=== PATIENT | female | born 1985 | race Caucasian/White ===

== ENCOUNTER 2024-05-18 15:48 | Emergency (ER) | payer MEDICAID, SELFPAY ==
[2024-05-18 15:49] VITALS: BP 123/88; PULSE 70; RESP 12; TEMP 37.4; O2SAT 95
--- NOTE | 2024-05-18 16:15 | DI.RAD_ITS ---
Exam(s) XR NASAL BONES EXAM: XR NASAL BONES CLINICAL HISTORY: fracture. TECHNIQUE: 2D digital imaging was performed. COMPARISON: No exams were available for comparison FINDINGS: 3 views There is no fracture evident on the lateral views. On the Crowell-type view there is summary laterall y of the left nasal bone noted, possibly significant. IMPRESSION: No evidence of depressed nasal fracture but says some regularity left nasal bone noted on the frontal -crowell type view. May be variant of normal. DATA REPOSITORY: RADIATION DOSE DELIVERED:
[2024-05-18] MEDS: Ondansetron O.D.T. 4 MG TABEF PO (17:00)
--- NOTE | 2024-05-18 17:28 | W.ED.GENAD ---
Discharge Plan Disposition Patient Disposition: Home Discharge Details Clinical Impression: Closed fracture nasal bone, Concussion Primary Care Provider: None,None ED Provider: Bernice Dudley Home Meds and New Rx's Prescriptions: No Action No Known Home Meds Discharge Instructions Instructions: Nose Fracture (DC), Post-Concussion Syndrome ED Additional Instructions: I listed a referral to [facility] plastics for you and listed Dr. Dsouza, ENT below Take Zofran as needed for nausea and vomiting, recommendation for rest for the next 48 hours stay away from ibuprofen and blowing your nose Recommendation to limit cardiovascular activity for the next several days to prevent nosebleed or worsening concussive signs and symptoms You have a nasal clamp, if you do have some bleeding, apply the nasal clamp for 20 minutes and spray some Afrin in your nose to see if it will resolve If you did have bleeding, please return for reassessment Please return should you have worsening headache, vomiting, increase in nasal bleeding, or should any new concerns arise Discharge Data Discharge Date/Time-TO BE ENTERED AT DEPARTURE: 05/18/24 18:23 HPI General Date/Time Provider Initiated Documentation: 05/18/24 15:54. HPI Narrative: This 39-year-old female presents with report of injury to nose after she accidentally fell on the shelf fold. She states it was a heavy metal shelf denies any loss of consciousness. Had some epistaxis from her right nare per patient. States tetanus is up-to-date denies chance of . States she has some nausea with a mild headache. Related Data Home Medications ?Medication ?Instructions ?Recorded ?Confirmed Unknown [No Known Home Meds] 05/18/24 05/18/24 Allergies Allergy/AdvReac Type Severity Reaction Status Date / Time amoxicillin AdvReac Intermediate Hives Verified 05/18/24 15:54 Penicillins AdvReac Intermediate Hives Verified 05/18/24 15:54 General Stated Complaint: FacialProb MARION: 3 Exam Narrative Exam Narrative: Tach, pupils equal round reactive to light and accommodation, no midline cervical spine tenderness, no visible chest trauma, hematoma and swelling noted to bridge of nasal bone, small abrasion without evidence of open fracture, epistaxis to right nare without evidence of septal hematoma, no active bleeding, GCS 15, alert and oriented x 4, ambulatory steady gait Course Vital Signs Vital signs: Vital Signs Temperature 37.4 C 05/18/24 15:49 Pulse 70 05/18/24 15:49 Respiratory Rate 12 05/18/24 15:49 Blood Pressure 123/88 05/18/24 15:49 Pulse Oximetry 95 05/18/24 15:49 Temperature 37.4 C 05/18/24 15:49 Temperature Source Skin 05/18/24 15:49 Pulse 70 05/18/24 15:49 Respiratory Rate 12 05/18/24 15:49 Respiratory Effort Normal 05/18/24 16:00 Blood Pressure 123/88 05/18/24 15:49 Blood Pressure Position Sitting 05/18/24 15:49 Pulse Oximetry 95 05/18/24 15:49 Oxygen Delivery Method Room Air 05/18/24 15:49 Oxygen Flow Rate 0 05/18/24 15:49 Pain Level 3 05/18/24 15:49 Medical Decision Making 39-year-old female presenting with nasal trauma today just prior to arrival. Also having some nausea with a headache, suspect mild concussion, no indication for CT imaging at this time, nonfocal neurological exam without significant concerning mechanism. I did order a nasal bone x-ray at the request of the patient and there is a small avulsion fracture but no additional findings. They requested plastic surgery referral, I have placed a referral to plastic surgery at [facility]. She is given a nasal clamp as needed and will engage in supportive care at home. Return precautions reviewed and patient expressed understanding. Tetanus updated reportedly. No vomiting throughout this stay and remains alert and oriented Quality:SDOH Health Related Social Needs: No Data to Display PFSH All Active Problems (Updated 05/18/24 @ 17:33 by FAIZA Mehta) Concussion (Acute) Closed fracture nasal bone (Acute) Social History Smoking/Tobacco Use Status: Current-Occasional Smoking risk assessment performed?: Yes Alcohol Intake: current Alcohol Intake frequency: a few times a month Drug use: Occasionally Substance use type: marijuana Housing: house Do you feel safe at home: Yes Do you feel safe in your relationship?: Yes PAWSS Have you Been Recently Intoxicated or Drunk Within the Last 30 days?: No Have you Ever Experienced Previous Episodes of Alcohol Withdrawal?: No Have you ever Experienced Withdrawal Seizures?: No Have you ever Experienced Delirium Tremens(DT)s?: No Have you ever undergone Alcohol Rehabilitation Treatment (i.e, inpt ot outpatient treatment programs)?: No Have you ever Experienced Blackouts?: No Have you ever Combined Alcohol with other Downers within the last 90 days?: No Positive Blood Alcohol level on Presentation? [PCS.BAL]: No Result: 0
--- NOTE | 2024-05-18 17:37 | NUR.NOTE ---
Addendum entered by Neva Mcdonough 05/22/24 09:17: Access chart to see if there was documentation of a referral done. Original Note: Referral given to Care Management to [facility] for nasal bone fracture in 1 to 2 weeks. Referral faxed to [facility]: Samantha Marquez on for telephone call; to establish care, just moved back to area; routine follow up. Nursing Note:
[2024-05-18 18:14] VITALS: PULSE 78; RESP 18; O2SAT 97
[2024-05-18] MEDS: Ondansetron O.D.T. 4 MG TABEF, 3 TABS/BTL PO (19:07)
== END 2024-05-18 18:23 | disposition home or self-care (01) ==
PROVIDERS: Emergency Provider Physician Assistant
DX: S02.2XXA Fracture of nasal bones, initial encounter for closed fracture (principal); S06.0XAA Concussion with loss of consciousness status unknown, initial encounter; W22.8XXA Striking against or struck by other objects, initial encounter
CPT/HCPCS: 99283; 70160

== ENCOUNTER 2024-08-18 02:09 | Outpatient (CLI) | payer MEDICAID, SELFPAY ==
--- NOTE | 2024-08-18 | DI.CT_ITS ---
Exam(s) CT FACIAL WO EXAM: CT FACIAL WO CLINICAL HISTORY: FACIAL INJURY S09.93XD NASAL BONE FX S/P FACIAL TRAUMA, ASSESS INJURY R/O. TECHNIQUE: Imaging Protocol: Axial computed tomography images with coronal and sagittal reformatted images were created and reviewed CONTRAST MATERIAL: Noncontrast- COMPARISON: CR XR NASAL BONES from 05/18/2024 FINDINGS: Facial Bones: No fracture is noted in the facial bones. The nasal septum is significantly deviated toward the left. Sinuses and Mastoids: Minimal mucous retention at the roof of the left maxillary sinus. Distal smal l mucous retention cyst anteriorly in the left maxillary sinus. Prior sinus surgery with bilateral m edial antrectomies. Globes, extraocular muscles, optic nerves and retrobulbar fat: Normal. Upper aerodigestive tract: Normal. Mandible and bilateral temporomandibular joints: Normal. Soft tissues: Normal. IMPRESSION: No evidence of fracture/dislocation in facial bones. Prior sinus surgery. Mild mucous retention in the left maxillary sinus. The nasal septum is deviate d toward the left. RADIATION DOSE DELIVERED: 394.29mGy.cm Total DLP DATA REPOSITORY: All CT scans at this facility are submitted to the National Radiology Data Registry (NRDR) Dose Index Registry (DIR) with the [employer] (A[employer]). RADIATION OPTIMIZATION: All CT scans at this facility use at least one of these dose optimization te chniques: automated exposure control; mA and/or kV adjustment per patient size (includes targeted exa ms where dose is matched to clinical indication); or iterative reconstruction.
== END 2024-08-18 02:29 ==
LOC: DI 02:11
PROVIDERS: Visit Provider Physician Assistant
DX: S09.93XD Unspecified injury of face, subsequent encounter (principal); X58.XXXD Exposure to other specified factors, subsequent encounter
CPT/HCPCS: 70486

== ENCOUNTER 2024-12-30 01:23 | Outpatient (CLI) | payer MEDICAID, SELFPAY ==
--- NOTE | 2024-12-30 06:30 | DI.RAD_ITS ---
Exam(s) XR FOOT LT COMPLETE XR FOOT RT COMPLETE EXAM: XR FOOT RT COMPLETE CLINICAL HISTORY: Right foot pain,m79.671. TECHNIQUE: 2D digital imaging was performed. Three views of both feet. COMPARISON: CR XR FOOT LT COMPLETE from 12/30/2024 FINDINGS: BONES: No acute fracture is present. No bony destructive lesion is seen. JOINTS: No dislocation present. Mild narrowing of the bilateral 1st MTP joints and mild lateral spur ring. No significant hallux valgus. Remaining joint spaces are maintained. Plantar arch is maintai pedrito bilaterally. SOFT TISSUE: Normal. IMPRESSION: Mild degenerative changes at both 1st MTP joints. DATA REPOSITORY: RADIATION DOSE DELIVERED:
== END 2024-12-30 01:43 ==
LOC: DI 01:23
PROVIDERS: PCP Nurse Practitioner Family; Visit Provider Podiatrist
DX: M79.671 Pain in right foot (principal); M79.672 Pain in left foot
CPT/HCPCS: 73630

== ENCOUNTER 2025-05-08 14:06 | Emergency (ER) | payer MEDICAID, SELFPAY ==
[2025-05-08 14:10] VITALS: BP 109/77; PULSE 66; RESP 18; TEMP 36.6; O2SAT 98
--- NOTE | 2025-05-08 14:53 | DI.RAD_ITS ---
Exam(s) XR ANKLE RT COMPLETE EXAM: XR ANKLE RT COMPLETE CLINICAL HISTORY: Twisted today. TECHNIQUE: 2D digital imaging was performed. Three views. COMPARISON: No exams were available for comparison FINDINGS: BONES: No acute fracture is present. No bony destructive lesion is seen. JOINTS: The ankle mortise is normally aligned. The ankle joint space is maintained. SOFT TISSUE: Swelling around the lateral malleolus. IMPRESSION: Soft tissue swelling. DATA REPOSITORY: RADIATION DOSE DELIVERED:
--- NOTE | 2025-05-08 15:02 | W.ED.GENAD ---
Discharge Plan Disposition Patient Disposition: Home Condition: Stable Discharge Details Clinical Impression: Right ankle sprain Primary Care Provider: Keysha Jimenez ED Provider: Nydia Charles Home Meds and New Rx's Prescriptions: No Action azelastine-fluticasone [Dymista] 137-50 mcg/spray spray,non-aerosol 1 spray intranasal BID Rx Instructions: administer into each nostril Discharge Instructions Instructions: Ankle Sprain ED Additional Instructions: You were seen in the emergency department today for evaluation of a right ankle injury concerning for sprain (damage to the ligaments). You had an x-ray that did not show any sign of fracture, and you are placed in an ankle stabilizer. Please wear this when you are up and about to support the ankle in the same way that the ligaments would if they were not damaged. You should use ice and elevation of the ankle to improve swelling, and if possible should try to stay off your ankle for the next few days to allow it to start to heal. Please use therapeutic dosing of Tylenol (acetaminophen) & Advil (ibuprofen) in an alternating fashion as follows: Take 1000mg of Tylenol every 6 hours without missing doses- that is 4 times per day. Group Home in between the Tylenol doses, take 600mg of Advil also on a 6 hour schedule, that is also 4 times per day. With this strategy, you will be taking something for fever/pain as often as every 3 hours. The daily maximum dosing of Tylenol is 4000mg, and the daily maximum dosing of Advil is 2400mg. Please note that some common cold medications & prescription pain medications may contain acetaminophen and you need to read OTC drug labels and factor that in to maximum daily doses. Please follow-up with your primary care provider in the next few days to discuss this visit and any symptoms that change, worsen, or persist. Thank you for allowing us to be part of your care. Discharge Data Discharge Date/Time-TO BE ENTERED AT DEPARTURE: 05/08/25 15:31 HPI General Date/Time Provider Initiated Documentation: 05/08/25 14:14. Limitations to Documentation: no limitations. Information obtained by: patient and old records reviewed. HPI Narrative: This is a 40-year-old female patient presenting for evaluation of a right ankle injury. The patient reports that earlier today she was helping a friend move, did a large step up with a heavy object and twisted her ankle when stepping forward, sustaining pain and swelling to the lateral aspect. 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 She took some ibuprofen prior to arrival, states that her pain at rest is not severe. She has a history of frequent strains and sprains, plantar fasciitis on that side, and states that she has a extensive physical therapy and stretching regimen that she often will do for her chronic issues. She did not injure any other part of her body, denies numbness, tingling, or weakness distal to the injury. Related Data Home Medications ?Medication ?Instructions ?Recorded ?Confirmed azelastine 137 mcg-fluticasone 50 1 spray intranasal BID 12/16/24 05/08/25 mcg/spray nasal spray (Dymista) Allergies Allergy/AdvReac Type Severity Reaction Status Date / Time amoxicillin AdvReac Intermediate Hives Verified 05/08/25 14:13 Penicillins AdvReac Intermediate Hives Verified 05/08/25 14:13 General Stated Complaint: Orthopedic MARION: 4 Exam Narrative Exam Narrative: Gen: Awake and alert, in no apparent distress HEENT: Non-icteric sclera Neck: Supple Lungs: No apparent respiratory distress, normal respiratory effort. CV: Appears well perfused Abdomen: Non-distended MSK: Moves 4 extremities without apparent limitation in ROM, tenderness over the anterior aspect of the lateral malleolus of the right ankle, with associated soft tissue swelling. She has strong DP pulses and full strength and sensation distal to this injury. No laxity or reproduction of pain with stressing of the syndesmosis, no proximal fibula tenderness. No overlying skin breaks Skin: Visualized skin without rashes, cyanosis. Neuro: Normal Gait, no obvious focal deficits or facial asymmetry. Speaks in full, clear sentences. Psych: Appropriate for situation. Course Vital Signs Vital signs: Vital Signs Temperature 36.6 C 05/08/25 14:10 Pulse 66 05/08/25 14:10 Respiratory Rate 18 05/08/25 14:10 Blood Pressure 109/77 05/08/25 14:10 Pulse Oximetry 98 05/08/25 14:10 Temperature 36.6 C 05/08/25 14:10 Temperature Source Skin 05/08/25 14:10 Pulse 66 05/08/25 14:10 Respiratory Rate 18 05/08/25 14:10 Blood Pressure 109/77 05/08/25 14:10 Blood Pressure Position Sitting 05/08/25 14:10 Pulse Oximetry 98 05/08/25 14:10 Oxygen Delivery Method Room Air 05/08/25 14:10 Oxygen Flow Rate 0 05/08/25 14:10 Pain Level 7 05/08/25 14:10 Lab/Test Results Lab/Test Results: POC- Test(urine) Negative Medical Decision Making This is a 40-year-old female patient presenting for evaluation of an ankle injury. My differential includes but is not limited to sprain, fracture, dislocation less likely in this ambulatory patient. No evidence of neurovascular derangement, comorbid knee or foot injury. The patient is otherwise in her normal state of health and this was a mechanical fall without concern for medical abnormality prior to the event. -We will provide the patient with an ice pack for swelling, she is not desiring of any medications at this time for management of pain. I will obtain x-ray imaging of the affected right ankle. - X-ray reviewed by myself, showing no osseous abnormality such as fracture or dislocation, soft tissue swelling most concerning for ligamentous injury/sprain. The patient was placed in a ankle stabilizer, and was able to ambulate steadily. She does not require crutches at this time. I counseled her on conservative management pain and swelling with [id number] occasions, ice, and elevation. At this time, the patient has had a full medical evaluation and is safe for discharge to home. They are hemodynamically stable, ambulatory, and tolerating PO. They are understanding of the follow-up plan and return precautions. They left our facility without incident. Nydia Charles MD [facility] All Active Problems (Updated 05/08/25 @ 15:24 by Nydia Charles MD) Right ankle sprain (Acute) Neuritis (Acute) Plantar fasciitis (Acute) Poor balance (Acute) Pain in both feet (Acute) Porokeratosis (Acute) Corns and callosities (Acute) Achilles tendon contracture, bilateral (Acute) Acquired hammertoes of both feet (Acute) Hallux rigidus, bilateral (Acute) Mild recurrent major depression (Acute) ADHD (attention deficit hyperactivity disorder) (Acute) Chronic pain (Chronic) Social History Smoking/Tobacco Use Status: Current-Occasional Smoking risk assessment performed?: Yes Alcohol Intake: current Alcohol Intake frequency: a few times a week Drug use: Occasionally Substance use type: marijuana Details: Pt states she smokes marijuana almost daily. Housing: house Do you feel safe at home: Yes Do you feel safe in your relationship?: Yes
== END 2025-05-08 15:31 | disposition home or self-care (01) ==
PROVIDERS: Emergency Provider Emergency Medicine; PCP Nurse Practitioner Family
DX: S93.401A Sprain of unspecified ligament of right ankle, initial encounter (principal); X58.XXXA Exposure to other specified factors, initial encounter
CPT/HCPCS: 99283 ×2; 29515; 81025; 73610